=== PATIENT | female | born 1940 | race Caucasian/White ===

== ENCOUNTER → 2016-08-21 | Outpatient (CLI) | payer MEDICARE, BC ==
--- NOTE | 2016-08-21 12:23 | RADRPT ---
PROCEDURE: XR pelvis/left hip. CLINICAL INDICATION: Hip pain TECHNIQUE: AP pelvis/AP and lateral left hip views performed. COMPARISON: 12/14/2049 FINDINGS: There is a right total hip replacement. There is no evidence of loosening of the prosthesis. There is severe left hip osteoarthrosis. This is associated with joint space narrowing, subchondral sclerosis, subchondral cyst formation and osteophytosis. There is normal osseous mineralization. N o fractures or osseous lesions are identified. The soft tissues are unremarkable. There are surgica l clips in the pelvis. IMPRESSION: Right total hip replacement. Severe left hip osteoarthrosis. RPTAT: HGDB .Micah Luo MD, MD Date Time Electronically viewed and signed by .Micah Luo MD, on 08/21/2016 12:23 .B/
== END | disposition home or self-care (01) ==
LOC: HKI 11:04
PROVIDERS: ATTEND Orthopaedic Surgery
DX: M16.12 Unilateral primary osteoarthritis, left hip (principal); M25.552 Pain in left hip; Z96.641 Presence of right artificial hip joint
CPT/HCPCS: 73502; G0463

== ENCOUNTER → 2016-11-18 | Outpatient (CLI) | payer MEDICARE, BC ==
[~2016-11-18] MED LIST: ASPI325T32 PO; BENHCT2012 PO; HYDR-3498 PO; HYDR100T7 PO; METO37.5 PO; PANT40TA4 PO; TRAM50TA2 PO
== END | disposition home or self-care (01) ==
LOC: HKI 10:40
PROVIDERS: ATTEND Orthopaedic Surgery
DX: M25.552 Pain in left hip (principal); M16.12 Unilateral primary osteoarthritis, left hip; Z96.641 Presence of right artificial hip joint
CPT/HCPCS: G0463

== ENCOUNTER 2016-11-22 11:46 | Emergency (ER) | payer MEDICARE, BC ==
[~2016-11-22] VITALS: Wt 93.0 kg
[2016-11-24] MEDS ORDERED: FENTAnyl 50 MCG/ML VIAL ONE (09:47)
== END 2016-11-22 13:28 | disposition left against medical advice (07) ==
LOC: FTE 11:46
DX: Z53.21 Procedure and treatment not carried out due to patient leaving prior to being seen by health care provider (principal)

== ENCOUNTER 2016-11-24 05:07 | Inpatient (IN) | payer MEDICARE, BC ==
[2016-11-24] VITALS (35 sets, daily range): BP systolic 109–155; BP diastolic 57–104; PULSE 54–81; RESP 10–22; Ht 170.2 cm; Wt 92.5 kg
[~2016-11-24] VITALS: Ht 170.2 cm; Wt 92.5 kg
[2016-11-24] MEDS: LACTATED RINGER'S 1,000 ML IV SCH ×4 (05:00→17:41)
[~2016-11-24 05:07] MED LIST changes: -ASPI325T32 PO; -BENHCT2012 PO; +BUPIVACAINE LIPOSOME/PF 266 MG/20 ML VIAL INFIL ONE; +CEFAZOLIN 2GM/50 ML (PMX) 50 ML X1 BEFORE INCISION IVPB ONE; +CELECOXIB 400 MG PO X1 DOSE PO ONE; -HYDR-3498 PO; -HYDR100T7 PO; -METO37.5 PO; +PAIN COCKTAIL-CEFUROXIME IRR ONE; -PANT40TA4 PO; +PREGABALIN 300 MG PO X1 PO ONE; -TRAM50TA2 PO; +TRANEXAMIC ACID 900 MG in SOD CHLORIDE 0.9% 100 ML IVPB ONE; +TRANEXAMIC ACID 900 MG in SOD CHLORIDE 0.9% 91 ML IV ONE; +oxyCODONE (CR) 10 MG TAB [oxyCONTIN] X1 DOSE PO ONE; +traMADOL 50 MG TAB X 1 DOSE PO ONE
[2016-11-24] MEDS ORDERED: ONDANSETRON 4 MG INJ IV PRN ×3 (06:00→10:00)
[2016-11-24] MEDS ORDERED: BENHCT2012 PO (06:35)
[2016-11-24] MEDS ORDERED: HYDR100T7 PO (06:35)
[2016-11-24] MEDS ORDERED: METO37.5 PO (06:35)
[2016-11-24] MEDS ORDERED: HEPARIN 1000 UNITS/ML 10 ML INJ ONE (06:45)
[2016-11-24] MEDS ORDERED: POLYMYXIN B 500000 UNIT INJ ONE (06:45)
[2016-11-24] MEDS ORDERED: VANCOMYCIN 1 GM INJ ONE (06:45)
[2016-11-24] MEDS ORDERED: MIDAZOLAM 1 MG/ML 2 ML INJ ONE (06:54)
[2016-11-24] MEDS ORDERED: PROPOFOL 100 ML ONE (06:54)
[2016-11-24] MEDS ORDERED: METOCLOPRAMIDE 10 MG INJ ONE (06:54)
[2016-11-24] MEDS ORDERED: CEFAZOLIN 1 GM INJ ONE (06:54)
[2016-11-24] MEDS ORDERED: DEXAMETHASONE 4 MG/ML 1 ML INJ ONE (06:55)
--- NOTE | 2016-11-24 07:08 | HPN ---
Date/Time of Note Date/Time of Note DATE: 11/24/16 TIME: 07:07 Interval H&P Admission Note Pt. seen H&P reviewed: No system changes No changes from H&P on 11/10/16 by ANTHONY Pizano MD Nov 24, 2016 07:08
[2016-11-24] MEDS ORDERED: EPHEDrine SULFATE 50 MG/5 ML SYG ONE (07:56)
[2016-11-24] MEDS ORDERED: BACITRACIN 50000 UNITS INJ IRR ONE (08:56)
[2016-11-24] MEDS ORDERED: HYDROmorphONE (0.2 MG/ML) 10ML SYG IV PRN ×3 (09:00)
[2016-11-24] MEDS ORDERED: MEPERIDINE 25 MG INJ IV PRN (09:00)
[2016-11-24] MEDS ORDERED: DIPHENHYDRAMINE 50 MG INJ IV PRN (09:00)
[2016-11-24] MEDS ORDERED: METOCLOPRAMIDE 10 MG INJ IV PRN (09:00)
--- NOTE | 2016-11-24 09:49 | PN ---
Date/Time of Note Date/Time of Note DATE: 11/24/16 TIME: 09:47 Assessment/Plan Lines/Catheters IV Catheter Type (from Nrsg): Peripheral IV Assessment/Plan Assessment/Plan Stable in PACU, s/p left anterior NIK -continue Ancef until drain removed -pain meds as needed -ASA/SCDs for DVT prophylaxis -OOB with PT -monitor drain -check AM labs -d/c lenz in AM XR of the left hip is pending at this time Subjective 24 Hr Interval Summary Stable in PACU. Denies pain. Drowsy and agitated from anesthesia. Moving all extremities. Exam/Review of Systems Vital Signs Vitals Vital Signs Date Time Temp Pulse Resp B/P Pulse Ox O2 Delivery O2 Flow Rate FiO2 11/24/16 09:14 98.4 11/24/16 06:07 62 18 140/77 97 Room Air Exam Free Text/Dictation Hemovac: minimal Dressing dry Incision clean, dry, and intact without redness or drainage 5/5 Quadriceps, Tibialis Anterior, EHL, Gastroc, Soleus, Peroneals Normal sensation Palpable DT/PT, CR <2 sec No distal edema JALEN CROSS PA-C Nov 24, 2016 09:49
[2016-11-24] MEDS ORDERED: MAGNESIUM HYDROXIDE 30ML CUP PO PRN (10:00)
[2016-11-24] MEDS ORDERED: ASPIRIN (EC) 325 MG TAB PO ONE (10:00)
[2016-11-24] MEDS ORDERED: DIPHENHYDRAMINE 25 MG CAP PO PRN (10:00)
[2016-11-24] MEDS ORDERED: NACL 0.9% 3 ML SYG IV SCH (10:00)
[2016-11-24] MEDS ORDERED: NA PHOSPHATE/BIPHOS 133 ML ENEMA PR PRN (10:00)
[2016-11-24] MEDS ORDERED: HYDROCODONE/APAP (5/325) TAB PO PRN ×2 (10:00)
[2016-11-24] MEDS ORDERED: BISACODYL 10 MG SUPP PR PRN (10:00)
[2016-11-24] MEDS: CEFAZOLIN 2 GM/50 ML (PMX) 50 ML IVPB SCH ×2 (10:10→18:47)
--- NOTE | 2016-11-24 10:13 | OPR ---
Date/Time of Note Date/Time of Note DATE: 11/24/16 TIME: 10:12 Operative Report Free Text/Dictation Dictation # [id number] Procedure Date: Nov 24, 2016 Preoperative Diagnosis Left Hip OA Postoperative Diagnosis Same Operation Performed Left Anterior NIK Surgeon: ANTHONY HENRY MD employment assistant: JALEN CROSS PA-C Anesthesia: general, spinal Anesthesiologist: TWAN RAMON MD Estimated Blood Loss: other Specimens Femoral Head Tubes/Drains Hemovac x 1 Complications: None Pt Condition Post Procedure: stable Disposition: PACU ANTHONY HENRY MD Nov 24, 2016 10:13
[2016-11-24 10:23] LABS: HEMATOCRIT 28.9 % (37.0-47.0); HEMOGLOBIN 9.3 g/dl (12.0-16.0)
[2016-11-24] MEDS ORDERED: FENTAnyl 50 MCG/ML VIAL IV PRN ×3 (10:30)
[2016-11-24] MEDS ORDERED: EXPAREL NOTE (BUPIVICAINE LIPOSOMAL) XX SCH (10:30)
[2016-11-24 10:58] LABS: CALCIUM 9.1 mg/dl (8.4-10.2); CREATININE 0.73 mg/dl (0.44-1.00); POTASSIUM 3.8 mmol/L (3.5-5.1)
--- NOTE | 2016-11-24 11:09 | RADRPT ---
PROCEDURE: XR Pelvis 1 View. CLINICAL INDICATION: Status post left hip replacement. TECHNIQUE: Single no AP view of the pelvis. COMPARISON: August 21, 2016 FINDINGS: Bilateral hip replacements are identified. Prosthetic components appear in appropriate position and alignment. The osseous structures appear intact. No destructive bony lesions are observed. Lamas catheter is identified over the lower pelvis. Surgical drain is noted over the left hip. Tissue a ir over the left hip is procedural in nature. A few surgical clips are identified in the pelvis. IMPRESSION: Bilateral hip replacements. Prosthetic components appear in appropriate position and alignment. RPTAT: AA .Rosendo Pires MD, Date Time Electronically viewed and signed by .Rosendo Pires MD, on 11/24/2016 11:08 .P/
--- NOTE | 2016-11-24 11:44 | OPR ---
DATE OF OPERATION: 11/24/2016 PREOPERATIVE DIAGNOSIS: Left hip osteoarthritis. POSTOPERATIVE DIAGNOSIS: Left hip osteoarthritis. OPERATION PERFORMED: Left anterior total hip arthroplasty. SURGEON: Anthony Wilson MD CASTING SUPERVISOR: MICHAEL Rosa COMPONENTS USED: DePuy size 54 mm Gription Alma cup, one 6.5 mm screw, 54/36 neutral AltrX poly ethylene liner, size 4 standard Actis stem, 36 plus 8.5 ceramic head. ANESTHESIA: Spinal plus general endotracheal intubation, plus periarticular injection. ANESTHESIOLOGIST: Piedad Salvador MD ESTIMATED BLOOD LOSS: 400 mL. INTRAVENOUS FLUIDS: Two liters of crystalloid plus 150 mL of autologous Cell Saver blood. SPECIMENS: Femoral head. DRAINS: Hemovac x1. COMPLICATIONS: None. DISPOSITION: The patient tolerated the procedure well and was taken to the recovery room in stable condition. INDICATIONS: The patient is a 76-year-old woman who has had progressive worsening pain in the left hip with radiographic evidence of severe osteoarthritis. She has failed nonsurgical means of treatm ent to control her pain including activity modifications, pain medications and ambulatory assist dev ices. Despite these measures, she has had worsening pain. I felt she would benefit from a total hi p arthroplasty through an anterior approach. The risks, benefits, and alternatives of the procedure were explained in detail to the patient. I e xplained the risks of the surgery to include, but not be limited to: bleeding and possible need for blood transfusion; infection; pain; stiffness; neurovascular injury with possible numbness, weakness , and/or paralysis anywhere from the hip down to the toes; fracture; instability; dislocation; leg l ength inequality; wear and/or loosening of the prosthesis and possible need for future revision; blo od clots; pulmonary embolism; and anesthetic complications such as heart attack, stroke, GI bleed, p neumonia, and/or . Ample time was allowed for the patient to ask questions, all of which were addressed and answered. The patient understood the risks involved and wished to proceed. Informed c onsent was signed prior to the procedure. PROCEDURE: The patient's left hip was initialed with a marking pen in the preoperative area to ident chris the correct operative site. The patient was brought to the operating room and transferred from the [facility] to the [facility] where a spinal anesthetic was administered. The patient was t hen anesthetized and intubated. A Lamas catheter was placed. Both feet were placed into well padde d boots which were then placed into the leg holders of the traction booms. A timeout was performed to confirm that the left side was the correct operative site. The patient was given 2 g of intraven ous Ancef within one hour prior to the procedure. The operative hip was prepped and draped in the u sual sterile fashion. A 10 cm oblique incision was made over the anterior aspect of the hip and carried down through subcu taneous tissue and fat with sharp dissection. The tensor fascia alber was incised along the length o f the wound. The tensor fascia muscle was retracted laterally and the sartorius medially. The anter ior circumflex vessels were identified and tied off with 2-0 silk suture and coagulated with the Tis emma Link low emission automobile designer. The rectus femoris was elevated off the anterior capsule and an anterior capsu lectomy performed. A femoral neck osteotomy was made and the head removed from the acetabulum. The acetabulum was denuded of cartilage circumferentially, as was the femoral head. Retractors were pl aced around the acetabulum. The remnants of the labrum and ligamentum teres were excised. I reamed the acetabulum to the medial wall and then went into an anatomic position and increased the reamer size in 2 mm increments until I got a good bite and was down to bleeding subchondral bone. The Alma cup was opened and impacted into the acetabulum and sat flush circumferentially, gettin g a good bite. C-arm imaging showed it had about 40 to 45 degrees of abduction and 20 degrees of ant eversion. One acetabular screw was placed. The real liner was opened and impacted into the acetabu lum and sat flush circumferentially. Attention was turned towards the femur. The operative leg was carefully lowered to the floor with the leg adducted. The foot was then exter darcy rotated to approximately 110 degrees. A posteromedial release was performed to optimize expos ure. The femoral hook was placed underneath the proximal femur and the hydraulic lift was then used to elevate the femur up out of the wound. The octaviaWelltheon cutter osteotome was used to remove the remai christina overhanging greater trochanter. The femur was then broached, going up in one size increments u ntil it sat flush with the neck cut and a stable fit was achieved. The trial neck and head were ass embled and reduced into the acetabulum. Fluoroscopic imaging showed the components to be in good pos ition and the leg lengths and offsets to be equal. At this point, the trial was dislocated and the trial broach removed. The canal was irrigated and d ried. The real stem was opened and impacted into the femur. The trunnion was irrigated and dried, a nd the real femoral head was impacted onto the trunnion, and reduced into the acetabulum. The soft tissues were infiltrated with a mixture of 150 mg of 0.5% bupivacaine, 8 mg of Duramorph, 3 00 mcg of epinephrine, 30 mg of Toradol, 100 mcg of clonidine, 750 mg of cefuroxime and 86 mL of nor mal saline, followed by an injection of 266 mg of liposomal bupivacaine. At this point the hip was irrigated with a mixture of Betadine/saline and then antibiotic saline with pulsatile lavage. A Hem ovac drain was placed in the deep portion of the wound and brought out the anterolateral thigh. Ther e was good hemostasis. The tensor fascia alber was repaired with a running #1 Vicryl. The deep fat layer was irrigated and closed with 2-0 Stratafix and the subcutaneous layer closed with 3-0 Vicryl and the skin was closed with keyshawn and then sealed with Dermabond. The drain was secured with 3-0 nylon. The sponge and needle counts were correct at the end of the case. The wound was covered with an occ lusive dressing. The patient was awakened, extubated, and taken to the recovery room in stable cond ition. Dictated By: ANTHONY LIN/JAYSON Conf#: [id number] DID#: [id number]
[2016-11-24] MEDS: traMADol 50 MG TAB PO SCH ×2 (12:38→18:47)
[2016-11-24] MEDS ORDERED: TRANEXAMIC ACID IVPB ONE ×2 (13:00→16:00)
[2016-11-24] MEDS ORDERED: SOD CHLORIDE 0.9% IVPB ONE ×2 (13:00→16:00)
--- NOTE | 2016-11-24 13:48 | CONS ---
DATE OF ADMISSION: 11/24/2016 DATE OF CONSULTATION: POSTOPERATIVE MEDICAL CONSULTATIVE NOTE Thank you very much, Dr. Wilson, for allowing me to evaluate the above patient, a 76-year-old female who just underwent a left total hip arthroplasty. HISTORICAL EVENTS: As you well know, this patient has had progressive disabling pain involving her left hip and for this elected to proceed with surgery. In recovery room, she is comfortable without cough, wheezing, shortness of breath, nausea, vomiting, abdominal, or chest pain. PAST MEDICAL HISTORY: Includes: 1. Hypertension. 2. History of rheumatoid arthritis. 3. Degenerative arthritis. ALLERGIES: INCLUDE TETRACYCLINE. MEDICATIONS PRIOR TO ADMISSION: 1. Aspirin 325. 2. Hydralazine 100 mg b.i.d. 3. Lopressor 25 mg b.i.d. 4. Benicar HCT 40/12.5 per day. 5. Multivitamins. 6. Loratadine 10 mg per day. 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 PHYSICAL EXAMINATION: GENERAL: Comfortable-appearing female in no acute distress. VITAL SIGNS: BP 122/80, pulse 70, respirations are 20, she was afebrile. EYES: Extraocular muscles were full. NOSE, MOUTH, AND THROAT: Normal. NECK: Supple. There was no jugular venous distention, thyroid enlargement, or adenopathy. Carotid s 2+. LUNGS: Clear. HEART: Rhythm regular, no murmur. No third or fourth sound. ABDOMEN: Nontender. Liver and spleen were not palpable. No masses or tenderness were noted. EXTREMITIES: No edema. Calves nontender. NEUROLOGIC: No lateralizing motor weakness. IMPRESSION: 1. Stable postop left hip arthroplasty. 2. History of hypertension. Will resume her BP medications and observe BP throughout. 3. Will evaluate her daily for signs and symptoms of thromboembolic disease despite an appropriate DVT prophylaxis. Dictated By: VICKIE BOLES/JAYSON Conf#: [id number] DID#: [id number]
--- NOTE | 2016-11-24 14:18 | RADRPT ---
PROCEDURE: X-ray fluoroscopy guidance CLINICAL INDICATION: Left hip replacement, fluoroscopic guidance TECHNIQUE: Fluoroscopic guidance was utilized for an intraoperative procedure. COMPARISON: None available FINDINGS: Fluoroscopic guidance was utilized for and intraoperative procedure. 0.5 minutes of fluoroscopy time was utilized for the procedure. 17 x-ray images were obtained during the procedure in progress. Fin al images demonstrate a left hip replacement. Prosthetic components appear in appropriate position and alignment. IMPRESSION: X-ray fluoroscopic guidance utilized for intraoperative procedure. Left hip replacement with prosthetic components in appropriate position and alignment. Please see procedure note for details. RPTAT: AA .Rosendo Pires MD, Date Time Electronically viewed and signed by .Rosendo Pires MD, on 11/24/2016 14:18 .P/
[2016-11-24 16:38] LABS: ADD SCAN DIFF NO
[2016-11-24 16:41] LABS: ABNORMAL IP MESSAGE 1; HEMATOCRIT 27.3 % (37.0-47.0); LYMPHOCYTES # 0.5 10^3/ul (0.8-2.9); LYMPHOCYTES % 13.5 % (15.0-51.0); MEAN CORPUSCULAR HEMOGLOBIN 29.5 pg (29.0-33.0); MEAN CORPUSCULAR VOLUME 89.5 fl (82.0-101.0); MEAN PLATELET VOLUME 10.4 fl (7.4-10.4); MONOCYTE # 0.1 10^3/ul (0.3-0.9); MONOCYTES % 3.5 % (0.0-11.0); NEUTROPHIL # 2.8 10^3/ul (1.6-7.5); NEUTROPHILS % 81.2 % (39.0-77.0); PLATELET COUNT 92 10^3/UL (140-415); RED BLOOD COUNT 3.05 10^6/ul (4.20-5.40); RED CELL DISTRIBUTION WIDTH 13.9 % (11.5-14.5); WHITE BLOOD COUNT 3.4 10^3/ul (4.8-10.8)
[2016-11-24] MEDS: PANTOPRAZOLE (EC) 40 MG TAB PO SCH (18:47)
[2016-11-24] MEDS: METOPROLOL 25 MG TAB PO SCH (20:42)
[2016-11-24] MEDS: DOCUSATE SODIUM 100 MG CAP PO SCH (20:43)
[2016-11-24] MEDS: HYDROmorphONE 1 MG/ML SYG IV PRN (22:36)
[2016-11-25] MEDS: LACTATED RINGER'S 1,000 ML IV SCH ×7 (00:10→21:00)
[2016-11-25 00:25] VITALS: BP 128/60; RESP 17
[2016-11-25] MEDS: CEFAZOLIN 2 GM/50 ML (PMX) 50 ML IVPB SCH (02:04)
[2016-11-25 05:32] LABS: HEMATOCRIT 25.1 % (37.0-47.0); HEMOGLOBIN 7.9 g/dl (12.0-16.0)
[2016-11-25] MEDS: PANTOPRAZOLE (EC) 40 MG TAB PO SCH ×2 (05:35→18:39)
[2016-11-25] MEDS: traMADol 50 MG TAB PO SCH ×4 (05:35→18:40)
[2016-11-25 05:49] LABS: CALCIUM 8.5 mg/dl (8.4-10.2); CREATININE 0.86 mg/dl (0.44-1.00); POTASSIUM 4.2 mmol/L (3.5-5.1)
[2016-11-25 07:00] VITALS: BP 135/64; RESP 20
[2016-11-25] MEDS: HYDROmorphONE 1 MG/ML SYG IV PRN ×2 (08:12→13:39)
--- NOTE | 2016-11-25 08:36 | PN ---
Date/Time of Note Date/Time of Note DATE: 11/25/16 TIME: 08:34 Assessment/Plan Lines/Catheters IV Catheter Type (from Nrsg): Peripheral IV Lamas in Place (from Nrsg): Yes Assessment/Plan Assessment/Plan Stable with low H&H POD #1, s/p left anterior NIK -d/c Ancef -pain meds as needed -ASA/SCDs for DVT prophylaxis -OOB with PT -check AM labs. H&H low but will hold off on transfusion for now -drain removed -discharge planning. Home versus SNF upon discharge Subjective 24 Hr Interval Summary No acute overnight events. Having mild pain. Did not start PT yesterday. H&H low but will hold off on transfusion right now as patient is asymptomatic. VSS, afebrile. Home versus SNF upon discharge. Exam/Review of Systems Vital Signs Vitals Vital Signs Date Time Temp Pulse Resp B/P Pulse Ox O2 Delivery O2 Flow Rate FiO2 11/25/16 07:00 98.7 90 20 135/64 97 11/24/16 20:37 Nasal Cannula 2.0 Intake and Output 11/24/16 11/24/16 11/25/16 15:00 23:00 07:00 Intake Total 2120 ml 880 ml 1638 ml Output Total 760 ml 1160 ml 475 ml Balance 1360 ml -280 ml 1163 ml Exam Free Text/Dictation Hemovac: 220cc Dressing dry Incision clean, dry, and intact without redness or drainage 5/5 Quadriceps, Tibialis Anterior, EHL, Gastroc, Soleus, Peroneals Normal sensation Palpable DT/PT, CR <2 sec No distal edema Results Result Diagram: 11/25/16 0420 11/25/16419 JALEN CROSS PA-C Nov 25, 2016 08:36
[2016-11-25] MEDS ORDERED: HYDROCHLOROTHIAZIDE 12.5 MG CAP PO SCH (09:00)
[2016-11-25 09:29] LABS: ADD UMIC YES; URINE BILIRUBIN (Dip) NEGATIVE (NEGATIVE); URINE BLOOD (Dip) TRACE (NEGATIVE); URINE COLOR LT. YELLOW (YELLOW); URINE GLUCOSE (Dip) NEGATIVE (NEGATIVE); URINE KETONES (Dip) NEGATIVE (NEGATIVE); URINE LEUKOCYTE ESTERASE (Dip) NEGATIVE (NEGATIVE); URINE NITRITE (Dip) NEGATIVE (NEGATIVE); URINE TOTAL PROTEIN (Dip) NEGATIVE (NEGATIVE); URINE UROBILINOGEN (Dip) 0.2 E.U./dL (0.1-1.0)
[2016-11-25] MEDS: DOCUSATE SODIUM 100 MG CAP PO SCH ×2 (09:42→21:05)
[2016-11-25] MEDS: ASPIRIN (EC) 325 MG TAB PO SCH ×2 (09:42→21:05)
[2016-11-25] MEDS: METOPROLOL 25 MG TAB PO SCH ×2 (09:43→21:05)
[2016-11-25] MEDS: LOSARTAN 50 MG TAB PO SCH (09:43)
--- NOTE | 2016-11-25 09:43 | CONS ---
Date/Time of Note Date/Time of Note DATE: 11/25/16 TIME: 09:41 Assessment/Plan Assessment/Plan Additional Assessment/Plan 1. S/P left hip replacement 2. HBP, good control 3. Anemia noted preop, will pursue, no need for transfusion Consultation Date/Type/Reason Admit Date/Time Nov 24, 2016 at 05:07 Initial Consult Date Detailed Summary Respiratory: No shortness of breath Cardiovascular: No chest pain, No lightheadedness Gastrointestinal: no complaints Genitourinary: other (lenz removed) Musculoskeletal: bone/joint pain (mild left hip pain) Exam/Review of Systems Vital Signs Vitals Vital Signs Date Time Temp Pulse Resp B/P Pulse Ox O2 Delivery O2 Flow Rate FiO2 11/25/16 07:00 98.7 90 20 135/64 97 11/24/16 20:37 Nasal Cannula 2.0 Intake and Output 11/24/16 11/24/16 11/25/16 15:00 23:00 07:00 Intake Total 2120 ml 880 ml 1638 ml Output Total 760 ml 1160 ml 475 ml Balance 1360 ml -280 ml 1163 ml Exam Neck: No jvd Respiratory: clear to auscultation Cardiovascular: regular rate and rhythm Gastrointestinal: soft Extremities: No edema (and no calf tend) Results Result Diagram: 11/25/16 0420 11/25/16 0420 Results 24 hrs Laboratory Tests Test 11/24/16 10:10 11/24/16 16:20 11/25/16 04:20 11/25/16 06:15 Hemoglobin 9.3 L 9.0 L 7.9 L Hematocrit 28.9 L 27.3 L 25.1 L Sodium Level 144 139 Potassium Level 3.8 4.2 Chloride Level 108 106 Carbon Dioxide Level 26 28 Anion Gap 14 9 # Blood Urea Nitrogen 25 H 24 H Creatinine 0.73 0.86 Glucose Level 120 96 Calcium Level 9.1 8.5 White Blood Count 3.4 L Red Blood Count 3.05 L Mean Corpuscular Volume 89.5 Mean Corpuscular Hemoglobin 29.5 Mean Corpuscular Hemoglobin Concent 33.0 Red Cell Distribution Width 13.9 Platelet Count 92 L Mean Platelet Volume 10.4 Neutrophils % 81.2 H Lymphocytes % 13.5 L Monocytes % 3.5 Eosinophils % 0.0 Basophils % 0.0 Nucleated Red Blood Cells % 0.0 Neutrophils # 2.8 Lymphocytes # 0.5 L Monocytes # 0.1 L Eosinophils # 0.0 Basophils # 0.0 Nucleated Red Blood Cells # 0.0 Urine Color LT. YELLOW Urine Clarity CLEAR Urine pH 5.5 Urine Specific [place] >=1.030 H Urine Ketones NEGATIVE Urine Nitrite NEGATIVE Urine Bilirubin NEGATIVE Urine Urobilinogen 0.2 E.U./dL Urine Leukocyte Esterase NEGATIVE Urine Microscopic RBC 5-10 Urine Microscopic WBC 0-2 Urine Hemoglobin TRACE Urine Glucose NEGATIVE Urine Total Protein NEGATIVE Medications Medications Current Medications Lactated Ringer's (Lr) 1,000 ml @ 100 mls/hr Q10H IV Last administered on 15:05; Admin Dose 100 MLS/HR; Start 11/24/16 at 05:00 Miscellaneous Information 1 ea NOTE XX ; Start 11/24/16 at 10:30; Stop 11/28/16 at 10:29 Hydralazine HCl (Apresoline) 100 mg BID PO Last administered on 11/24/16 20:42 ; Admin Dose 100 MG; Start 11/24/16 at 21:00 Metoprolol Tartrate 25 mg 25 mg BID PO Last administered on 11/24/16 20:42; Admin Dose 25 MG; Start 11/24/16 at 21:00 Lactated Ringer's (Lr) 1,000 ml @ 125 mls/hr Q8H IV Last administered on 00:39; Admin Dose 125 MLS/HR; Start 11/24/16 at 09:41 Tramadol HCl (Ultram) 50 mg Q6 PO Last administered on 11/25/16 05:35; Admin Dose 50 MG; Start 11/24/16 at 12:00; Stop 11/27/16 at 11:59 Acetaminophen/ Hydrocodone Bitart ([place] (5/325)) 1 tab Q4H PRN PO PAIN LEVEL 1 -3; Start 11/24/16 at 10:00 Acetaminophen/ Hydrocodone Bitart ([place] (5/325)) 2 tab Q4H PRN PO PAIN LEVEL 4 -7; Start 11/24/16 at 10:00 Hydromorphone HCl (Dilaudid) 1 mg Q3H PRN IV PAIN LEVEL 8-10 Last administered on 11/25/16 08:12; Admin Dose 1 MG; Start 11/24/16 at 10:00 Ondansetron HCl (Zofran Inj) 4 mg Q6H PRN IV NAUSEA AND/OR VOMITING; Start 11/24 at 10:00 Bisacodyl (Dulcolax Supp) 10 mg Q12H PRN [place] CONSTIPATION; Start 11/24/16 at 10: 00 Magnesium Hydroxide (Milk Of Mag) 30 ml BID PRN PO CONSTIPATION; Start 11/24/16 at 10:00 Sodium Biphosphate/ Sodium Phosphate (Fleet Enema) 133 ml DAILY PRN [place] CONSTIPATION; Start 11/24/16 at 10:00 Docusate Sodium (Colace) 100 mg BID PO Last administered on 11/24/16 20:43; Admin Dose 100 MG; Start 11/24/16 at 21:00 Diphenhydramine HCl (Benadryl) 25 mg Q6H PRN PO PRURITUS; Start 11/24/16 at 10: 00 Aspirin (Ecotrin) 325 mg BID PO ; Start 11/25/16 at 09:00 Pantoprazole (Protonix Tab) 40 mg BID@,18 PO Last administered on 11/25/16 05 :35; Admin Dose 40 MG; Start 11/24/16 at 18:00 Losartan Potassium (Cozaar) 100 mg DAILY PO ; Start 11/25/16 at 09:00 VICKIE DAMON MD Nov 25, 2016 09:43
[2016-11-25 20:30] VITALS: BP 140/64; RESP 20
[2016-11-26] MEDS: LACTATED RINGER'S 1,000 ML IV SCH ×2 (01:41→06:50)
[2016-11-26] MEDS: PANTOPRAZOLE (EC) 40 MG TAB PO SCH ×2 (05:47→17:38)
[2016-11-26] MEDS: traMADol 50 MG TAB PO SCH ×5 (05:47→23:41)
[2016-11-26 05:56] LABS: HEMATOCRIT 25.6 % (37.0-47.0); HEMOGLOBIN 8.2 g/dl (12.0-16.0)
[2016-11-26 06:09] LABS: IRON 13 ug/dl (35-150)
[2016-11-26 06:18] LABS: TOTAL IRON BINDING CAPACITY 237 ug/dl (241-421)
[2016-11-26 06:24] LABS: CALCIUM 8.5 mg/dl (8.4-10.2); CREATININE 0.59 mg/dl (0.44-1.00); POTASSIUM 3.5 mmol/L (3.5-5.1)
[2016-11-26 07:36] LABS: FERRITIN 76.5 ng/ml (11.1-264.0)
[2016-11-26 07:51] VITALS: BP 158/70; RESP 20
[2016-11-26 08:01] VITALS: BP 140/72; RESP 18
[2016-11-26] MEDS: METOPROLOL 25 MG TAB PO SCH ×2 (08:45→21:23)
[2016-11-26] MEDS: ASPIRIN (EC) 325 MG TAB PO SCH ×2 (08:45→21:23)
[2016-11-26] MEDS: DOCUSATE SODIUM 100 MG CAP PO SCH ×2 (08:45→21:22)
[2016-11-26] MEDS: LOSARTAN 50 MG TAB PO SCH (08:46)
--- NOTE | 2016-11-26 12:27 | CONS ---
Date/Time of Note Date/Time of Note DATE: 11/26/16 TIME: 12:26 Assessment/Plan Assessment/Plan Additional Assessment/Plan 1. S/P left hip replacement 2. HBP, good control 3. Anemia noted preop, iron studies and b12 noted, replacement started 4. Mild hypoxemia sec to atelectasis, incentive spir, cxr Consultation Date/Type/Reason Admit Date/Time Nov 24, 2016 at 05:07 Detailed Summary Respiratory: cough, No shortness of breath Cardiovascular: No chest pain Gastrointestinal: No no complaints Genitourinary: no complaints Musculoskeletal: bone/joint pain (mild right hip pain) Exam/Review of Systems Vital Signs Vitals Vital Signs Date Time Temp Pulse Resp B/P Pulse Ox O2 Delivery O2 Flow Rate FiO2 11/26/16 11:17 Nasal Cannula 2.0 11/26/16 07:51 98.2 78 20 158/70 94 Intake and Output 11/25/16 11/25/16 11/26/16 15:00 23:00 07:00 Intake Total 560 ml 1640 ml 850 ml Output Total 600 ml 950 ml Balance 560 ml 1040 ml -100 ml Exam Neck: No jvd Respiratory: clear to auscultation Cardiovascular: regular rate and rhythm Gastrointestinal: soft Extremities: No edema (and no calf tend) Results Result Diagram: 11/26/1644611/26/16446 Results 24 hrs Laboratory Tests Test 11/26/16 04:47 Hemoglobin 8.2 L Hematocrit 25.6 L Sodium Level 137 Potassium Level 3.5 Chloride Level 103 Carbon Dioxide Level 29 Anion Gap 9 Blood Urea Nitrogen 14 # Creatinine 0.59 Glucose Level 101 Calcium Level 8.5 Iron Level 13 L Total Iron Binding Capacity 237 L Percent Iron Saturation 5 L Ferritin 76.5 Vitamin B12 Level 199 L Folate 17.9 Medications Medications Current Medications Lactated Ringer's (Lr) 1,000 ml @ 100 mls/hr Q10H IV Last administered on 19:30; Admin Dose 100 MLS/HR; Start 11/24/16 at 05:00 Miscellaneous Information 1 ea NOTE XX ; Start 11/24/16 at 10:30; Stop 11/28/16 at 10:29 Hydralazine HCl (Apresoline) 100 mg BID PO Last administered on 11/26/16 08:46 ; Admin Dose 100 MG; Start 11/24/16 at 21:00 Metoprolol Tartrate 25 mg 25 mg BID PO Last administered on 11/26/16 08:45; Admin Dose 25 MG; Start 11/24/16 at 21:00 Lactated Ringer's (Lr) 1,000 ml @ 125 mls/hr Q8H IV Last administered on 09:47; Admin Dose 125 MLS/HR; Start 11/24/16 at 09:41 Tramadol HCl (Ultram) 50 mg Q6 PO Last administered on 11/26/16 05:47; Admin Dose 50 MG; Start 11/24/16 at 12:00; Stop 11/27/16 at 11:59 Acetaminophen/ Hydrocodone Bitart ([place] (5/325)) 1 tab Q4H PRN PO PAIN LEVEL 1 -3 Last administered on 11/26/16 10:30; Admin Dose 1 TAB; Start 11/24/16 at 10:00 Acetaminophen/ Hydrocodone Bitart ([place] (5/325)) 2 tab Q4H PRN PO PAIN LEVEL 4 -7; Start 11/24/16 at 10:00 Hydromorphone HCl (Dilaudid) 1 mg Q3H PRN IV PAIN LEVEL 8-10 Last administered on 11/25/16 13:39; Admin Dose 1 MG; Start 11/24/16 at 10:00 Ondansetron HCl (Zofran Inj) 4 mg Q6H PRN IV NAUSEA AND/OR VOMITING; Start 11/24 at 10:00 Bisacodyl (Dulcolax Supp) 10 mg Q12H PRN [place] CONSTIPATION; Start 11/24/16 at 10: 00 Magnesium Hydroxide (Milk Of Mag) 30 ml BID PRN PO CONSTIPATION; Start 11/24/16 at 10:00 Sodium Biphosphate/ Sodium Phosphate (Fleet Enema) 133 ml DAILY PRN [place] CONSTIPATION; Start 11/24/16 at 10:00 Docusate Sodium (Colace) 100 mg BID PO Last administered on 11/26/16 08:45; Admin Dose 100 MG; Start 11/24/16 at 21:00 Diphenhydramine HCl (Benadryl) 25 mg Q6H PRN PO PRURITUS; Start 11/24/16 at 10: 00 Aspirin (Ecotrin) 325 mg BID PO Last administered on 11/26/16 08:45; Admin Dose 325 MG; Start 11/25/16 at 09:00 Pantoprazole (Protonix Tab) 40 mg BID@18 PO Last administered on 11/26/16 05 :47; Admin Dose 40 MG; Start 11/24/16 at 18:00 Losartan Potassium (Cozaar) 100 mg DAILY PO Last administered on 11/26/16 08:46 ; Admin Dose 100 MG; Start 11/25/16 at 09:00 VICKIE DAMON MD Nov 26, 2016 12:27
--- NOTE | 2016-11-26 13:24 | PN ---
Date/Time of Note Date/Time of Note DATE: 11/25/16 TIME: 13:22 Anesthesia note: A 76 year female s/p LHA under GA and spinal, pod #1 is doing well, pain is controlled, no itching, headache, back pain, n/v. back is clean. Assessment/Plan VTE Prophylaxis VTE Prophylaxis Intervention: ambulation Lines/Catheters IV Catheter Type (from Nrs): Peripheral IV Urinary Cath still in place: No Exam/Review of Systems Vital Signs Vitals Vital Signs Date Time Temp Pulse Resp B/P Pulse Ox O2 Delivery O2 Flow Rate FiO2 11/26/16 11:17 Nasal Cannula 2.0 11/26/16 07:51 98.2 78 20 158/70 94 Intake and Output 11/25/16 11/25/16 11/26/16 14:59 22:59 06:59 Intake Total 560 ml 1640 ml 850 ml Output Total 600 ml 950 ml Balance 560 ml 1040 ml -100 ml Results Result Diagram: 11/26/16 0447 11/26/16 0447 Results 24 hrs Laboratory Tests Test 11/26/16 04:47 Hemoglobin 8.2 L Hematocrit 25.6 L Sodium Level 137 Potassium Level 3.5 Chloride Level 103 Carbon Dioxide Level 29 Anion Gap 9 Blood Urea Nitrogen 14 # Creatinine 0.59 Glucose Level 101 Calcium Level 8.5 Iron Level 13 L Total Iron Binding Capacity 237 L Percent Iron Saturation 5 L Ferritin 76.5 Vitamin B12 Level 199 L Folate 17.9 Medications Medications Current Medications Miscellaneous Information 1 ea NOTE XX ; Start 11/24/16 at 10:30; Stop 11/28/16 at 10:29 Hydralazine HCl (Apresoline) 100 mg BID PO Last administered on 11/26/16 08:46 ; Admin Dose 100 MG; Start 11/24/16 at 21:00 Metoprolol Tartrate (Lopressor) 25 mg BID PO Last administered on 11/26/16 08: 45; Admin Dose 25 MG; Start 11/24/16 at 21:00 Tramadol HCl (Ultram) 50 mg Q6 PO Last administered on 11/26/16 13:10; Admin Dose 50 MG; Start 11/24/16 at 12:00; Stop 11/27/16 at 11:59 Acetaminophen/ Hydrocodone Bitart ([place] (5/325)) 1 tab Q4H PRN PO PAIN LEVEL 1 -3 Last administered on 11/26/16 10:30; Admin Dose 1 TAB; Start 11/24/16 at 10:00 Acetaminophen/ Hydrocodone Bitart ([place] (5/325)) 2 tab Q4H PRN PO PAIN LEVEL 4 -7; Start 11/24/16 at 10:00 Hydromorphone HCl (Dilaudid) 1 mg Q3H PRN IV PAIN LEVEL 8-10 Last administered on 11/25/16 13:39; Admin Dose 1 MG; Start 11/24/16 at 10:00 Ondansetron HCl (Zofran Inj) 4 mg Q6H PRN IV NAUSEA AND/OR VOMITING; Start 11/24 at 10:00 Bisacodyl (Dulcolax Supp) 10 mg Q12H PRN [place] CONSTIPATION; Start 11/24/16 at 10: 00 Magnesium Hydroxide (Milk Of Mag) 30 ml BID PRN PO CONSTIPATION; Start 11/24/16 at 10:00 Sodium Biphosphate/ Sodium Phosphate (Fleet Enema) 133 ml DAILY PRN [place] CONSTIPATION; Start 11/24/16 at 10:00 Docusate Sodium (Colace) 100 mg BID PO Last administered on 11/26/16 08:45; Admin Dose 100 MG; Start 11/24/16 at 21:00 Diphenhydramine HCl (Benadryl) 25 mg Q6H PRN PO PRURITUS; Start 11/24/16 at 10: 00 Aspirin (Ecotrin) 325 mg BID PO Last administered on 11/26/16 08:45; Admin Dose 325 MG; Start 11/25/16 at 09:00 Pantoprazole (Protonix Tab) 40 mg BID@06,18 PO Last administered on 11/26/16 05 :47; Admin Dose 40 MG; Start 11/24/16 at 18:00 Losartan Potassium (Cozaar) 100 mg DAILY PO Last administered on 11/26/16 08:46 ; Admin Dose 100 MG; Start 11/25/16 at 09:00 Docusate Sodium/ Ferrous Fumarate (Eric-Sequels) 1 tab BID PO ; Start 11/26/16 at 12:30 Cyanocobalamin (Vitamin B12) 500 mcg DAILY PO ; Start 11/27/16 at 09:00 TWAN RAMON MD Nov 26, 2016 13:24
--- NOTE | 2016-11-26 13:28 | PN ---
Date/Time of Note Date/Time of Note DATE: 11/25/16 TIME: 15:25 Anesthesia Note: a 76 year old female s/p right NIK under GA and spinal POD # 1. pt had some SOB today but CXR was normal, improve with O2. pain is controlled, no N/V, headache , back pain, itching. back is clean Assessment/Plan VTE Prophylaxis VTE Prophylaxis Intervention: ambulation, SCD's Lines/Catheters IV Catheter Type (from Nrs): Peripheral IV Urinary Cath still in place: No Exam/Review of Systems Vital Signs Vitals Vital Signs Date Time Temp Pulse Resp B/P Pulse Ox O2 Delivery O2 Flow Rate FiO2 11/26/16 11:17 Nasal Cannula 2.0 11/26/16 07:51 98.2 78 20 158/70 94 Intake and Output 11/25/16 11/25/16 11/26/16 15:00 23:00 07:00 Intake Total 560 ml 1640 ml 850 ml Output Total 600 ml 950 ml Balance 560 ml 1040 ml -100 ml Results Result Diagram: 11/26/167 11/26/16 0447 Results 24 hrs Laboratory Tests Test 11/26/16 04:47 Hemoglobin 8.2 L Hematocrit 25.6 L Sodium Level 137 Potassium Level 3.5 Chloride Level 103 Carbon Dioxide Level 29 Anion Gap 9 Blood Urea Nitrogen 14 # Creatinine 0.59 Glucose Level 101 Calcium Level 8.5 Iron Level 13 L Total Iron Binding Capacity 237 L Percent Iron Saturation 5 L Ferritin 76.5 Vitamin B12 Level 199 L Folate 17.9 Medications Medications Current Medications Miscellaneous Information 1 ea NOTE XX ; Start 11/24/16 at 10:30; Stop 11/28/16 at 10:29 Hydralazine HCl (Apresoline) 100 mg BID PO Last administered on 11/26/16 08:46 ; Admin Dose 100 MG; Start 11/24/16 at 21:00 Metoprolol Tartrate (Lopressor) 25 mg BID PO Last administered on 11/26/16 08: 45; Admin Dose 25 MG; Start 11/24/16 at 21:00 Tramadol HCl (Ultram) 50 mg Q6 PO Last administered on 11/26/16 13:10; Admin Dose 50 MG; Start 11/24/16 at 12:00; Stop 11/27/16 at 11:59 Acetaminophen/ Hydrocodone Bitart ([place] (5/325)) 1 tab Q4H PRN PO PAIN LEVEL 1 -3 Last administered on 11/26/16 10:30; Admin Dose 1 TAB; Start 11/24/16 at 10:00 Acetaminophen/ Hydrocodone Bitart ([place] (5/325)) 2 tab Q4H PRN PO PAIN LEVEL 4 -7; Start 11/24/16 at 10:00 Hydromorphone HCl (Dilaudid) 1 mg Q3H PRN IV PAIN LEVEL 8-10 Last administered on 11/25/16 13:39; Admin Dose 1 MG; Start 11/24/16 at 10:00 Ondansetron HCl (Zofran Inj) 4 mg Q6H PRN IV NAUSEA AND/OR VOMITING; Start 11/24 at 10:00 Bisacodyl (Dulcolax Supp) 10 mg Q12H PRN [place] CONSTIPATION; Start 11/24/16 at 10: 00 Magnesium Hydroxide (Milk Of Mag) 30 ml BID PRN PO CONSTIPATION; Start 11/24/16 at 10:00 Sodium Biphosphate/ Sodium Phosphate (Fleet Enema) 133 ml DAILY PRN [place] CONSTIPATION; Start 11/24/16 at 10:00 Docusate Sodium (Colace) 100 mg BID PO Last administered on 11/26/16 08:45; Admin Dose 100 MG; Start 11/24/16 at 21:00 Diphenhydramine HCl (Benadryl) 25 mg Q6H PRN PO PRURITUS; Start 11/24/16 at 10: 00 Aspirin (Ecotrin) 325 mg BID PO Last administered on 11/26/16 08:45; Admin Dose 325 MG; Start 11/25/16 at 09:00 Pantoprazole (Protonix Tab) 40 mg BID@,18 PO Last administered on 11/26/16 05 :47; Admin Dose 40 MG; Start 11/24/16 at 18:00 Losartan Potassium (Cozaar) 100 mg DAILY PO Last administered on 11/26/16 08:46 ; Admin Dose 100 MG; Start 11/25/16 at 09:00 Docusate Sodium/ Ferrous Fumarate (Eric-Sequels) 1 tab BID PO ; Start 11/26/16 at 12:30 Cyanocobalamin (Vitamin B12) 500 mcg DAILY PO ; Start 6/9/17 at 09:00 TWAN RAMON MD Nov 26, 2016 13:28
--- NOTE | 2016-11-26 14:02 | PN ---
Date/Time of Note Date/Time of Note DATE: 11/26/16 TIME: 14:00 Assessment/Plan Lines/Catheters IV Catheter Type (from Nrsg): Peripheral IV Lamas in Place (from Nrsg): No Assessment/Plan Assessment/Plan POD #2, s/p left anterior NIK -pain meds as needed. PO meds only -ASA/SCDs for DVT prophylaxis -OOB with PT -check AM labs. H&H low but stabilized. Will continue to monitor for now -dressing changed -encourage incentive spirometry -will plan to transfer to [facility] tomorrow Subjective 24 Hr Interval Summary No acute overnight events. Had desaturation episodes yesterday but is doing better overall today. Denies f/c. Has not walked much with PT. H&H low but stable. No need for transfusion at this point. Will need transfer to [facility] with tentative plan to transfer tomorrow. Exam/Review of Systems Vital Signs Vitals Vital Signs Date Time Temp Pulse Resp B/P Pulse Ox O2 Delivery O2 Flow Rate FiO2 11/26/16 11:17 Nasal Cannula 2.0 11/26/16 07:51 98.2 78 20 158/70 94 Intake and Output 11/25/16 11/25/16 11/26/16 15:00 23:00 07:00 Intake Total 560 ml 1640 ml 850 ml Output Total 600 ml 950 ml Balance 560 ml 1040 ml -100 ml Exam Free Text/Dictation Dressing dry Incision clean, dry, and intact without redness or drainage 5/5 Quadriceps, Tibialis Anterior, EHL, Gastroc, Soleus, Peroneals Normal sensation Palpable DT/PT, CR <2 sec No distal edema Results Result Diagram: 11/26/16 0447 11/26/16 0447 JALEN CROSS PA-C Nov 26, 2016 14:02
[2016-11-26] MEDS: FERROUS FUMARATE (SR) TAB PO SCH ×2 (14:20→21:23)
--- NOTE | 2016-11-26 16:51 | PDOCDIS ---
Discharge Instructions DIAGNOSIS Discharge Diagnosis: s/p left anterior NIK CONDITION Patient Condition: Good HOME CARE INSTRUCTIONS: Diet Instructions: Regular ACTIVITY: Activity Restrictions: Slowly Increase Activity Rest between Activity Avoid heavy lifting Do not operate Machinery Do not operate Power Tool Avoid Heavy Housework Keep Limb Elevated Weight Bearing Bathing Restrictions: Shower FOLLOW UP/APPOINTMENTS Appointments follow up in the office on 12/04/16 OTHER ORDERS: Other Orders: S/P Anterior NIK Physical Therapy: Three times per week at home x 2 weeks Daily in Rehab/SNF WB STATUS: WBAT Strengthening exercises for both upper and un-operated lower extremities. 1. Gait training with front wheeled walker 2. Wide base gait, no pivot turns. 3. Abductor strengthening. 4. Quadriceps and hamstring strengthening. 5. May switch to cane in contra lateral hand 6 weeks after surgery. 6. Physical Therapy can open case if nursing is not available. 7. Ice Packs while at rest to surgical wound for 20 minutes, 3 times/day. 8. Patient requires mobile SCDs to reduce risk of developing DVT following NIK. Patient will use the mobile SCDs for 30 days postoperatively. Hip Precautions: No posterior hip precautions. Bathing assistance by home health aide twice weekly if Medicare patient. Occupational Therapy: Evaluation for assistive devices and ADL training. Wound Care: Keep incision dry & covered with Tegaderm until first visit with Dr. Wilson Anticoagulation Orders: Enteric Coated Aspirin 325 mg po bid x 6 weeks from date of surgery Follow-up:Call for an appointment with Dr. Wilson in 1 week after discharged from hospital at DME Orders: BRI, 3-in-1 Commode, Mobile SCDs JALEN CROSS PA-C Nov 26, 2016 16:51
[2016-11-26] MEDS ORDERED: PANT40TA4 PO (16:52)
[2016-11-26] MEDS ORDERED: ASPI325T32 PO (16:52)
[2016-11-26] MEDS ORDERED: HYDR-3498 PO (16:52)
[2016-11-26] MEDS ORDERED: TRAM50TA2 PO (16:52)
[2016-11-26 23:01] VITALS: BP 159/74; RESP 20
--- NOTE | 2016-11-27 01:28 | RADRPT ---
PROCEDURE: XR Chest. CLINICAL INDICATION: Dyspnea. TECHNIQUE: Single frontal view of the chest. COMPARISON: None. FINDINGS: Cardiomegaly. The lungs are clear. No signs of pleural fluid or pneumothorax are seen. The osseous s tructures and soft tissues are unremarkable. IMPRESSION: No evidence for active cardiopulmonary disease. RPTAT: [facility] Physician Monserrat Date Time Electronically viewed and signed by Sakshi Carpio Physician on 11/27/2016 01:27 RS/
[2016-11-27 05:46] LABS: HEMATOCRIT 24.6 % (37.0-47.0); HEMOGLOBIN 8.2 g/dl (12.0-16.0)
[2016-11-27 06:16] LABS: CALCIUM 8.7 mg/dl (8.4-10.2); CREATININE 0.58 mg/dl (0.44-1.00); POTASSIUM 3.5 mmol/L (3.5-5.1)
[2016-11-27] MEDS: traMADol 50 MG TAB PO SCH (06:24)
[2016-11-27] MEDS: PANTOPRAZOLE (EC) 40 MG TAB PO SCH (06:24)
[2016-11-27 07:52] VITALS: BP 173/79; RESP 20
--- NOTE | 2016-11-27 08:30 | PN ---
Date/Time of Note Date/Time of Note DATE: 11/27/16 TIME: 08:29 Assessment/Plan Lines/Catheters IV Catheter Type (from Nrsg): Saline Lock Lamas in Place (from Nrsg): No Assessment/Plan Assessment/Plan POD #3, s/p left anterior NIK -pain meds as needed -ASA/SCDs -OOB with PT -dressing changed -transfer to [facility] today -follow up in the office in 1 week Subjective 24 Hr Interval Summary No acute overnight events. Denies pain. H&H low but would like to hold off on transfusion today. VSS, afebrile. Will plan to go [facility] today. Exam/Review of Systems Vital Signs Vitals Vital Signs Date Time Temp Pulse Resp B/P Pulse Ox O2 Delivery O2 Flow Rate FiO2 11/27/16 07:52 97.8 84 20 173/79 92 11/26/16 20:10 Nasal Cannula 2.0 Intake and Output 11/26/16 11/26/16 11/27/16 15:00 23:00 07:00 Intake Total 240 ml 960 ml 650 ml Balance 240 ml 960 ml 650 ml Exam Free Text/Dictation Dressing dry Incision clean, dry, and intact without redness or drainage 5/5 Quadriceps, Tibialis Anterior, EHL, Gastroc, Soleus, Peroneals Normal sensation Palpable DT/PT, CR <2 sec No distal edema Results Result Diagram: 11/27/16 0432 11/27/16 0433 JALEN CROSS PA-C Nov 27, 2016 08:30
[2016-11-27] MEDS: DOCUSATE SODIUM 100 MG CAP PO SCH (08:45)
[2016-11-27] MEDS: LOSARTAN 50 MG TAB PO SCH (08:45)
[2016-11-27] MEDS: ASPIRIN (EC) 325 MG TAB PO SCH (08:45)
[2016-11-27] MEDS: METOPROLOL 25 MG TAB PO SCH (08:45)
[2016-11-27] MEDS: FERROUS FUMARATE (SR) TAB PO SCH (08:46)
--- NOTE | 2016-11-27 08:46 | CONS ---
Date/Time of Note Date/Time of Note DATE: 11/27/16 TIME: 08:44 Assessment/Plan Assessment/Plan Additional Assessment/Plan 1. Doing well post op right hip replacement. 2. Anemia, not symptomatic, to cont iron 3. BP well controlled. 4. Pulmonary status has improved Consultation Date/Type/Reason Admit Date/Time Nov 24, 2016 at 05:07 Detailed Summary Respiratory: cough, No shortness of breath Cardiovascular: No chest pain Gastrointestinal: no complaints Genitourinary: no complaints Musculoskeletal: no complaints (mild right hip pain) Exam/Review of Systems Vital Signs Vitals Vital Signs Date Time Temp Pulse Resp B/P Pulse Ox O2 Delivery O2 Flow Rate FiO2 11/27/16 07:52 97.8 84 20 173/79 92 11/26/16 20:10 Nasal Cannula 2.0 Intake and Output 11/26/16 11/26/16 11/27/16 15:00 23:00 07:00 Intake Total 240 ml 960 ml 650 ml Balance 240 ml 960 ml 650 ml Exam Neck: No jvd Respiratory: clear to auscultation Cardiovascular: regular rate and rhythm Gastrointestinal: soft Extremities: No edema (and no calf tend) Results Result Diagram: 11/27/16 0432 11/27/16 0433 Results 24 hrs Laboratory Tests Test 11/27/16 04:32 11/27/16 04:33 11/27/16 07:06 Hemoglobin 8.2 L Hematocrit 24.6 L Sodium Level 136 Potassium Level 3.5 Chloride Level 102 Carbon Dioxide Level 27 Anion Gap 11 Blood Urea Nitrogen 11 Creatinine 0.58 Glucose Level 95 Calcium Level 8.7 Lab Scanned Report REFERENCE LAB Medications Medications Current Medications Miscellaneous Information 1 ea NOTE XX ; Start 11/24/16 at 10:30; Stop 11/28/16 at 10:29 Hydralazine HCl (Apresoline) 100 mg BID PO Last administered on 11/26/16 21:23 ; Admin Dose 100 MG; Start 11/24/16 at 21:00 Metoprolol Tartrate (Lopressor) 25 mg BID PO Last administered on 11/26/16 21: 23; Admin Dose 25 MG; Start 11/24/16 at 21:00 Tramadol HCl (Ultram) 50 mg Q6 PO Last administered on 11/27/16 06:24; Admin Dose 50 MG; Start 11/24/16 at 12:00; Stop 11/27/16 at 11:59 Acetaminophen/ Hydrocodone Bitart ([place] (5/325)) 1 tab Q4H PRN PO PAIN LEVEL 1 -3 Last administered on 11/26/16 10:30; Admin Dose 1 TAB; Start 11/24/16 at 10:00 Acetaminophen/ Hydrocodone Bitart ([place] (5/325)) 2 tab Q4H PRN PO PAIN LEVEL 4 -7; Start 11/24/16 at 10:00 Ondansetron HCl (Zofran Inj) 4 mg Q6H PRN IV NAUSEA AND/OR VOMITING; Start 11/24 at 10:00 Bisacodyl (Dulcolax Supp) 10 mg Q12H PRN [place] CONSTIPATION; Start 11/24/16 at 10: 00 Magnesium Hydroxide (Milk Of Mag) 30 ml BID PRN PO CONSTIPATION Last administered on 11/27/16 06:24; Admin Dose 30 ML; Start 11/24/16 at 10:00 Sodium Biphosphate/ Sodium Phosphate (Fleet Enema) 133 ml DAILY PRN [place] CONSTIPATION; Start 11/24/16 at 10:00 Docusate Sodium (Colace) 100 mg BID PO Last administered on 11/26/16 21:22; Admin Dose 100 MG; Start 11/24/16 at 21:00 Diphenhydramine HCl (Benadryl) 25 mg Q6H PRN PO PRURITUS; Start 11/24/16 at 10: 00 Aspirin (Ecotrin) 325 mg BID PO Last administered on 11/26/16 21:23; Admin Dose 325 MG; Start 11/25/16 at 09:00 Pantoprazole (Protonix Tab) 40 mg BID@06,18 PO Last administered on 11/27/16 06 :24; Admin Dose 40 MG; Start 11/24/16 at 18:00 Losartan Potassium (Cozaar) 100 mg DAILY PO Last administered on 11/26/16 08:46 ; Admin Dose 100 MG; Start 11/25/16 at 09:00 Docusate Sodium/ Ferrous Fumarate (Eric-Sequels) 1 tab BID PO Last administered on 11/26/16 21:23; Admin Dose 1 TAB; Start 11/26/16 at 12:30 Cyanocobalamin (Vitamin B12) 500 mcg DAILY PO ; Start 11/27/16 at 09:00 VICKIE DAMON MD Nov 27, 2016 08:46
[2016-11-27] MEDS ORDERED: CYANOCOBALAMIN 500 MCG TAB PO SCH (09:00)
[2016-11-27 12:37] VITALS: BP 163/72
--- NOTE | 2016-11-27 17:04 | DS ---
DATE OF ADMISSION: 11/24/2016 DATE OF DISCHARGE: 11/27/2016 CONDITION ON DISCHARGE: Stable. ADMITTING DIAGNOSIS: Left hip osteoarthritis. DISCHARGE DIAGNOSIS: Status post left anterior total hip arthroplasty. PROCEDURE PERFORMED: Left anterior total hip arthroplasty. HOSPITAL COURSE: This is a 76-year-old female who presented to clinic initially complaining of left hip pain. X-rays demonstrated advanced osteoarthritis of the left hip, and it was thought she would benefit from a left anterior total hip arthroplasty. On 11/24/2016, the patient was admitted and taken to the operating room where she underwent a left anterior total hip arthroplasty. There were no intraoperative complications. The patient tolerated the procedure well. She was taken to the recovery room in stable condition. Pain was well controlled with oral pain medication. She was started on aspirin and SCDs for DVT prophylaxis. She remained hemodynamically stable and neurovascularly intact throughout her hospital stay although she did develop some postoperative anemia that was monitored. We held off a blood transfusion per her request. She began physical therapy on postoperative day 1 and continued to make good progress. Ultimately, on postoperative day 3, she was deemed stable for discharge. Prior to discharge home, the incision was inspected and noted to be clean, dry, and intact. Dressing changes were done prior to the patient going home. LABORATORY ANALYSIS: Hemoglobin 8.2, hematocrit 24.6. Chemistry panel was within normal limits. DISCHARGE MEDICATIONS: 1. [place] 5/325 mg. 2. Aspirin 325 mg. 3. Protonix 40 mg. 4. Tramadol 50 mg. 5. Additionally, the patient is to resume all of her normal home medications. DISCHARGE INSTRUCTIONS: The patient will be discharged home in stable condition. She is to resume her normal diet. She is weightbearing as tolerated on the left lower extremity. She will begin physical therapy with home health. She will be discharged home on the medications noted above and is to resume all of her normal home medications. The patient is to call the office or go to the emergency room for any concerns including increased redness , swelling, drainage, fever, or any concern regarding the operation or site of incision. FOLLOWUP: The patient will need to follow up in the office on 12/04/2016. Dictated By: JALEN MERRILL/JAYSON Conf#: [id number] [facility]#: [id number] [facility]
== END 2016-11-27 13:50 | DRG 470 ==
LOC: REC 05:07 → MS1 15:25
PROVIDERS: ADMIT Orthopaedic Surgery; ATTEND Orthopaedic Surgery
PROC: 0SRB04A Replacement of Left Hip Joint with Ceramic on Polyethylene Synthetic Substitute, Uncemented, Open Approach (ICD-10-PCS; principal; 2016-11-24 07:00)
DX: M16.12 Unilateral primary osteoarthritis, left hip (principal); M06.9 Rheumatoid arthritis, unspecified; D64.9 Anemia, unspecified; I10 Essential (primary) hypertension; R09.02 Hypoxemia
CPT/HCPCS: 71010; 72170; 73530; 80048; 81001; 82607; 82728; 82746; 83540; 85014; 85018; 85025; 86320; 86850; 86900; 86901; 86920; 87081; 87086; 88304; 88311; 97110; 97116; 97162; 97167; 97530; C1713; C1776; C9290; J0171; J0690; J0697; J0735; J1100; J1170; J1644; J1885; J2250; J2274; J2405; J2765; J3370; J7120

== ENCOUNTER → 2016-12-04 | Outpatient (CLI) | payer MEDICARE, BC ==
[~2016-12-04] MED LIST changes: +ASPI325T32 PO; +BENHCT2012 PO; -BUPIVACAINE LIPOSOME/PF 266 MG/20 ML VIAL INFIL ONE; -CEFAZOLIN 2GM/50 ML (PMX) 50 ML X1 BEFORE INCISION IVPB ONE; -CELECOXIB 400 MG PO X1 DOSE PO ONE; +HYDR-3498 PO; +HYDR100T7 PO; +METO37.5 PO; -PAIN COCKTAIL-CEFUROXIME IRR ONE; +PANT40TA4 PO; -PREGABALIN 300 MG PO X1 PO ONE; +TRAM50TA2 PO; -TRANEXAMIC ACID 900 MG in SOD CHLORIDE 0.9% 100 ML IVPB ONE; -TRANEXAMIC ACID 900 MG in SOD CHLORIDE 0.9% 91 ML IV ONE; -oxyCODONE (CR) 10 MG TAB [oxyCONTIN] X1 DOSE PO ONE; -traMADOL 50 MG TAB X 1 DOSE PO ONE
--- NOTE | 2016-12-04 11:48 | HKNOTE ---
DATE OF SERVICE: 12/04/2016 INTERVAL HISTORY: The patient presents today for her first postoperative evaluation. She is 10 day s status post left anterior total hip arthroplasty. She is doing well overall. She is currently at [facility], but would like to go home today. She denies any fevers or chills. She is taking aspi rin twice daily for DVT prophylaxis. She is also ambulating and progressing with physical therapy. She presents today for her first postoperative evaluation. PHYSICAL EXAMINATION: On exam today she is alert and oriented x4, and in no acute distress. Exam o f the incision demonstrates it to be clean, dry and intact. She is ambulating with a front-wheel wa lker. Pattison are in place. There is no pain with passive range of motion of the left hip. There is no erythema, warmth, pus or drainage noted. Compartments are soft. Homans sign is negative. Sh e is neurovascularly intact distally. IMAGING: X-rays done of the left hip at an outside facility demonstrate good anatomic alignment, wi th no fractures or dislocations identified. ASSESSMENT: Ten days status post left anterior total hip arthroplasty. PLAN: The keyshawn were removed today and Steri-Strips were applied. She is to continue ambulating for rehabilitation. She is using a cane and will eventually transition to no assistive device. She is to continue the aspirin twice daily for DVT prophylaxis. The keyshawn were removed today and Allen ri-Strips were applied. We will see her back in 4 weeks for a repeat evaluation. She is stable for discharge home from [facility]. In the meantime she is to call the office if she has any concerns . Dictated By: JALEN RODRIGUEZ for ANTHONY MERRILL/JAYSON Conf#: [id number] DID#: [id number]
== END | disposition home or self-care (01) ==
LOC: HKI 10:48
PROVIDERS: ATTEND Orthopaedic Surgery
DX: Z47.1 Aftercare following joint replacement surgery (principal); Z96.642 Presence of left artificial hip joint

== ENCOUNTER → 2017-01-01 | Outpatient (CLI) | payer MEDICARE, BC ==
--- NOTE | 2017-01-01 14:07 | RADRPT ---
PROCEDURE: XR Left Hip and pelvis. CLINICAL INDICATION: Left hip pain. Pelvic pain. TECHNIQUE: Two views. Frontal pelvis and lateral left hip. COMPARISON: Pelvis radiograph dated 11/24/2016. FINDINGS: There are bilateral total hip arthroplasties which appears satisfactory. There is no fracture, disl ocation, or loosening. Left lateral skin keyshawn and surgical drain have been removed. Lamas catheter has been removed. Surgical clips are present bilaterally in the pelvis. The upper pelvis is not included on the images. There is no lytic or blastic lesion. IMPRESSION: 1. Satisfactory postoperative appearance of both hips. RPTAT: QQ .Cassius Calvert MD, MD Date Time Electronically viewed and signed by .Cassius Calvert MD, on 01/01/2017 14:07 .R/
== END | disposition home or self-care (01) ==
LOC: HKI 11:06
PROVIDERS: ATTEND Orthopaedic Surgery
DX: Z47.1 Aftercare following joint replacement surgery (principal); Z96.642 Presence of left artificial hip joint; M16.12 Unilateral primary osteoarthritis, left hip
CPT/HCPCS: 73502